=== PATIENT | male | born 1990 ===

== ENCOUNTER 2023-04-04 02:05 | Emergency (ER) | payer BC, SELFPAY ==
[2023-04-04 02:12] VITALS: BP 149/94; PULSE 80; RESP 18; TEMP 36.6; O2SAT 99; BMI 33.2
--- NOTE | 2023-04-04 02:18 | ED.ABDPAIN1 ---
HPI - Abdominal Pain General Stated Complaint: ABDOMINAL PAIN Time Seen by Provider: 04/04/23 02:11 Source: patient Mode of arrival: walk-in History of Present Illness HPI narrative: 33-year-old male presents for evaluation of an umbilical hernia. The patient states he has had the hernia for approximately one month. Tonight he was doing some work with his arms outstretched and picks up something about 10 pounds when he started having pain in his periumbilical area. His hernia had popped out. He states he was nauseated prior to arrival. He has not vomited or had any diarrhea. He has not seen anybody for the hernia yet. He has no chest pain or shortness of breath. He denies any dizziness or diaphoresis. The hernia was reduced at triage and the patient is somewhat better at this time. Related Data Allergies Allergy/AdvReac Type Severity Reaction Status Date / Time No Known Drug Allergies Allergy Verified 04/04/23 02:12 Review of Systems ROS Status of ROS 10 or more systems reviewed and unremarkable except as noted in history and below Exam Narrative Exam Narrative: Nurses note and vital signs reviewed and patient is not hypoxic. Blood pressure is noted to be elevated at 149/94 General: The patient appears well and in no apparent distress. Patient is resting comfortably on cart. Skin: Warm, dry, no pallor noted. There is no rash noted. Head: Normocephalic, atraumatic Eye: Normal conjunctiva, no drainage, EOMI. PERRL Ears, Nose, Mouth, and Throat: oral mucosa is moist. Cardiovascular: Regular Rate and Rhythm Respiratory: Patient is in no distress, no accessory muscle use, lungs are clear to auscultation, no wheezing, rales or rhonchi Back: non-tender, no CVA tenderness bilaterally to percussion. GI: Normal bowel sounds, no tenderness to palpation, no masses appreciated. No rebound, guarding, or rigidity noted. No umbilical hernia appreciated at this time-was asked to stand up and the hernia did not pop back out Musculoskeletal: The patient has no evidence of calf tenderness, no pitting edema, symmetrical pulses noted bilaterally Neurological: A&O x4, normal speech Psychiatric: Cooperative Constitutional Vital Signs, click to edit/add: Last Vital Signs Temp 97.8 F 04/04/23 02:12 Pulse 80 04/04/23 02:12 Resp 18 04/04/23 02:12 BP 149/94 H 04/04/23 02:12 Pulse Ox 99 04/04/23 02:12 O2 Del Method Room Air 04/04/23 02:12 Course Vital Signs Vital signs: Vital Signs Temperature 97.8 F 04/04/23 02:12 Pulse Rate 80 04/04/23 02:12 Respiratory Rate 18 04/04/23 02:12 Blood Pressure 149/94 H 04/04/23 02:12 Pulse Oximetry 99 04/04/23 02:12 Oxygen Delivery Method Room Air 04/04/23 02:12 Temperature 97.8 F 04/04/23 02:12 Pulse Rate 80 04/04/23 02:12 Respiratory Rate 18 04/04/23 02:12 Blood Pressure 149/94 H 04/04/23 02:12 Pulse Oximetry 99 04/04/23 02:12 Oxygen Delivery Method Room Air 04/04/23 02:12 MDM - Abdominal Pain MDM Narrative Medical decision making narrative: This 33-year-old male presents for evaluation of an abdominal wall/umbilical hernia that has been That for the last month. Earlier today he was doing some lifting with his arms extended out and felt the hernia. It was causing him some nausea and abdominal pain after work and he came to the emergency department for evaluation. During his triage assessment he showed this area to the nursing staff who palpated it and reduced it. On my evaluation he has a palpable deformity at the umbilicus but no hernia while lying or standing. X-ray of the abdomen was done to rule out any sign of obstruction. I reviewed the x-ray myself and there is no sign of obstruction was a normal bowel gas pattern, no free air and no obstructive signs. He declined the need for any pain medication or nausea medication as the hernia had been reduced at triage. He will be referred to outpatient general surgery for further evaluation and treatment. I explained to him how to gently reduce the hernia himself by lying flat and relaxing his abdominal wall muscles and providing gentle pressure downward into the abdominal cavity. He verbalizes understanding of this and feels comfortable being discharged home. Discharge Plan Discharge Clinical Impression: Hernia, umbilical Patient Disposition: Home, Self-Care Time of Disposition Decision: 03:31 Condition: Good Instructions: Umbilical Hernia (ED), Umbilical Hernia Repair (DC) Additional Instructions: Call Dr Garner [phone] for an appointment as soon as possible. Return to the ED for recurrence of the hernia especially if you cannot reduce it yourself or if you are having severe abdominal pain, nausea or vomiting Stand Alone Forms: Portal Instructions Referrals: Shaikh Mesa MD [Primary Care Provider] - 1 week
--- NOTE | 2023-04-04 02:23 | XR_ITS ---
The [address] [address] Patient Name: SADIQ MENDES MRN: [id number] date: 1990 Sex: M Assigned Patient Location: ER Current Patient Location: ED.MAIN Accession/Order Number: [id number] Exam Date: 04/04/2023 02:40 Report Date: 04/04/2023 03:43 At the request of: KEREN MARKER Procedure: XR abdomen min 2V EXAM: XR abdomen min 2V HISTORY: umbilical hernia COMPARISON: None. TECHNIQUE: Upright and supine abdominal x-rays. FINDINGS: Mild scattered stool noted throughout the course of the colon. No dilated air-filled small or large bowel loops identified to suggest obstruction. No air-fluid levels identified. No pathologic-appearing abdominal calcification is seen. Osseous structures appear intact. XR/XR abdomen min 2V IMPRESSION: No bowel obstruction or free air identified. Electronically authenticated by: MINERVA HERRERA Date: 04/04/2023 03:43
== END 2023-04-04 03:45 | disposition home or self-care (01) ==
PROVIDERS: Emergency Provider Emergency Medicine; PCP Internal Medicine
DX: K42.9 Umbilical hernia without obstruction or gangrene (principal)
CPT/HCPCS: 74019; 99283